=== PATIENT | female | born 1985 | race Two or more races ===

== ENCOUNTER 2017-01-27 19:12 | Emergency (ER) | payer MEDICAID, OTHER ==
[~2017-01-27] VITALS: Ht 154.9 cm; Wt 84.0 kg
[~2017-01-27 19:12] MED LIST: IOHEXOL-300 100 ML BOTTLE ONE; SODIUM CHLORIDE 0.9% 10ML VIAL ONE
[2017-01-27] MEDS ORDERED: IBUPROFEN 600MG TABLET PO STA (20:04)
[2017-01-27] MEDS ORDERED: SODIUM CHLORIDE 0.9% 1,000 ML IV ONE (20:04)
[2017-01-27] MEDS ORDERED: ALBUTEROL (0.083%) 2.5MG/3ML NEB HHN STA (20:07)
[2017-01-27] MEDS ORDERED: IPRATROPIUM BROMIDE (0.02%) 0.5MG/2.5ML NEB HHN STA (20:07)
[2017-01-27 20:26] LABS: HEMATOCRIT. 36.1 % (36.0-48.0); HEMOGLOBIN. 12.5 g/dL (12.0-16.0); MEAN CORPUSCULAR HEMOGLOBIN 30.2 pg (28.0-32.0); MEAN CORPUSCULAR HGB CONC 34.6 g/dL (31.0-37.0); MEAN CORPUSCULAR VOLUME 87.3 fL (81.0-99.0); MEAN PLATELET VOLUME 8.9 fl (7.4-10.4); PLATELET 172 x1000/uL (130-400); RED BLOOD CELL COUNT 4.14 mill/uL (4.2-5.4); RED CELL DISTRIBUTION WIDTH 12.8 % (11.6-14.6); WHITE BLOOD COUNT 3.6 x1000/uL (4.5-11.0)
[2017-01-27 20:29] LABS: DIFFERENTIAL COMMENT 1
[2017-01-27 20:30] LABS: PROTHROMBIN TIME 10.2 sec
[2017-01-27 20:36] LABS: ALBUMIN 3.6 g/dL (3.4-5.0); ANION GAP 12; CALCIUM 8.9 mg/dL (8.5-10.1); CARBON DIOXIDE 26 mEq/L (21-32); CHLORIDE 104 mEq/L (98-107); INDEX HEMOLYSI 1 (1-3); INDEX ICTERIC 1 (1-4); INDEX LIPEMIC 1 (1-3); UREA NITROGEN BLOOD 10 mg/dL (7-21)
[2017-01-27 20:41] LABS: ALANINE AMINOTRANSFERASE 29 IU/L (13-61); eGFR > 60 mL/min (>60)
[2017-01-27 20:42] LABS: HCG SCREEN NEGATIVE; TROPONIN I < 0.02 ng/mL (0.00-0.04)
[2017-01-27 21:05] LABS: ATYPICAL LYMPHOCYTES 1; PLATELET ESTIMATE NORMAL
[2017-01-27 21:12] LABS: CLARITY URINE CLEAR (CLEAR); COLOR URINE YELLOW (YELLOW); GLUCOSE URINE NEGATIVE (NEGATIVE); KETONES URINE NEGATIVE (NEGATIVE); LEUKOCYTE ESTERASE URINE NEGATIVE (NEGATIVE); NITRITE URINE NEGATIVE (NEGATIVE); OCCULT BLOOD URINE 1+ (NEGATIVE); PH URINE 6.5 (4.5-8.0); PROTEIN URINE NEGATIVE (NEGATIVE); SPECIFIC GRAVITY URINE 1.029 (1.005-1.030)
[2017-01-27 21:50] LABS: BACTERIA URINE TRACE; SQUAMOUS EPITHELIAL CELL URINE RARE /lpf (RARE/1+); WBC URINE NONE SEEN /hpf (0-2)
[2017-01-28] VITALS: BP 95/49
== END 2017-01-28 00:17 | disposition home or self-care (01) ==
LOC: ER 23:42
DX: N39.0 Urinary tract infection, site not specified (principal); R07.81 Pleurodynia; R05 Cough; Z98.51 Tubal ligation status
CPT/HCPCS: 36415; 71010; 74177; 80053; 81001; 83605; 84484; 84703; 85025; 85610; 87040; 87086; 93005; 94640; 96360; 99285; A4216; J7030; J7611; Q9967

== ENCOUNTER 2018-12-07 11:20 | Emergency (ER) | payer MEDICAID ==
[~2018-12-07] VITALS: Ht 154.9 cm; Wt 87.0 kg
[2018-12-07 11:51] VITALS: BP 118/53
== END 2018-12-07 16:20 | disposition left against medical advice (07) ==
LOC: ER 12:30
DX: Z53.21 Procedure and treatment not carried out due to patient leaving prior to being seen by health care provider (principal)
CPT/HCPCS: 93005

== ENCOUNTER 2019-05-15 00:22 | Emergency (ER) | payer MEDICAID ==
[~2019-05-15] VITALS: Ht 154.9 cm; Wt 89.0 kg
[2019-05-15] MEDS ORDERED: MORPHINE SULFATE 4 MG/ML CPJ (NOT FOR IM USE) IV ONE (03:30)
[2019-05-15 04:20] LABS: BASOPHILS % 0.7 % (0.0-2.0); EOSINOPHILS % 3.6 % (0.0-5.0); HEMATOCRIT. 37.2 % (36.0-48.0); HEMOGLOBIN. 12.9 g/dL (12.0-16.0); LYMPHOCYTES % 39.7 % (20.0-50.0); MEAN CORPUSCULAR HEMOGLOBIN 31.1 pg (28.0-32.0); MEAN CORPUSCULAR VOLUME 89.5 fL (81.0-99.0); MEAN PLATELET VOLUME 8.8 fl (7.4-10.4); MONOCYTES % 10.3 % (2.0-8.0); NEUTROPHILS % 45.7 % (40.0-76.0); PLATELET 241 x1000/uL (130-400); RED BLOOD CELL COUNT 4.15 mill/uL (4.2-5.4); RED CELL DISTRIBUTION WIDTH 12.6 % (11.6-14.6)
[2019-05-15 04:22] LABS: CLARITY URINE CLEAR (CLEAR); COLOR URINE YELLOW (YELLOW); KETONES URINE NEGATIVE (NEGATIVE); LEUKOCYTE ESTERASE URINE NEGATIVE (NEGATIVE); NITRITE URINE NEGATIVE (NEGATIVE); OCCULT BLOOD URINE NEGATIVE (NEGATIVE); PROTEIN URINE NEGATIVE (NEGATIVE); SPECIFIC GRAVITY URINE 1.028 (1.005-1.030); UROBILINOGEN URINE 0.2 E.U./dL (0.2-1.0)
[2019-05-15 04:25] LABS: CHLORIDE 107 mEq/L (98-107)
[2019-05-15] MEDS ORDERED: KETOROLAC 30MG/ML VIAL IM ONE (07:15)
[2019-05-15 08:19] VITALS: BP 110/60
== END 2019-05-15 08:26 | disposition home or self-care (01) ==
LOC: ER 00:22
DX: R10.9 Unspecified abdominal pain (principal); E78.00 Pure hypercholesterolemia, unspecified; Z98.51 Tubal ligation status
CPT/HCPCS: 36415; 74176; 76830; 76856; 80053; 81003; 81025; 83690; 85025; 85610; 96372; 96374; 99284; J1885; J2270

== ENCOUNTER 2019-10-01 22:53 | Emergency (ER) | payer MEDICAID, OTHER ==
[~2019-10-01] VITALS: Ht 157.5 cm; Wt 82.0 kg
[2019-10-01 23:22] VITALS: BP 138/87
== END 2019-10-02 03:36 | disposition left against medical advice (07) ==
LOC: ER 22:53
DX: Z53.21 Procedure and treatment not carried out due to patient leaving prior to being seen by health care provider (principal); F17.200 Nicotine dependence, unspecified, uncomplicated

== ENCOUNTER 2025-02-20 04:33 | Emergency (ER) | payer OTHER ==
[~2025-02-20] VITALS: Ht 154.9 cm; Wt 99.1 kg
[2025-02-20 05:04] VITALS: O2SAT 99
[2025-02-20 06:19] LABS: CLARITY URINE CLOUDY (CLEAR); COLOR URINE YELLOW (YELLOW); GLUCOSE URINE NEGATIVE (NEGATIVE); KETONES URINE 1+ (NEGATIVE); LEUKOCYTE ESTERASE URINE NEGATIVE (NEGATIVE); NITRITE URINE NEGATIVE (NEGATIVE); OCCULT BLOOD URINE 1+ (NEGATIVE); PROTEIN URINE NEGATIVE (NEGATIVE); SPECIFIC GRAVITY URINE 1.032 (1.005-1.030)
[2025-02-20 06:21] LABS: BASOPHILS % 0.7 % (0.0-2.0); EOSINOPHILS % 0.3 % (0.0-5.0); HEMATOCRIT. 38.9 % (36.0-48.0); HEMOGLOBIN. 13.3 g/dL (12.0-16.0); LYMPHOCYTES % 9.1 % (20.0-50.0); MEAN CORPUSCULAR HEMOGLOBIN 30.6 pg (28.0-32.0); MEAN CORPUSCULAR HGB CONC 34.3 g/dL (31.0-37.0); MEAN CORPUSCULAR VOLUME 89.2 fL (81.0-99.0); MEAN PLATELET VOLUME 8.5 fl (7.4-10.4); NEUTROPHILS % 82.9 % (40.0-76.0); PLATELET 299 x1000/uL (130-400); RED BLOOD CELL COUNT 4.37 mill/uL (4.2-5.4); RED CELL DISTRIBUTION WIDTH 13.2 % (11.6-14.6); WHITE BLOOD COUNT 10.7 x1000/uL (4.5-11.0)
[2025-02-20 06:29] LABS: CHLORIDE 102 mEq/L (98-107); POTASSIUM 4.5 mEq/L (3.5-5.1); SODIUM 137 mEq/L (136-145)
[2025-02-20 06:30] LABS: CALCIUM 9.8 mg/dL (8.7-10.4); CARBON DIOXIDE 25 mEq/L (21-32)
[2025-02-20 06:35] LABS: CREATININE 0.6 mg/dL (0.6-1.0); GLUCOSE 128 mg/dL (70-105); UREA NITROGEN BLOOD 11 mg/dL (9-23)
[2025-02-20] MEDS: ONDANSETRON 4MG ODT PO ONE (06:41)
[2025-02-20 06:43] LABS: HCG SCREEN NEGATIVE
[2025-02-20 06:56] LABS: SQUAMOUS EPITHELIAL CELL URINE 1+ /lpf (RARE/1+); WBC URINE 0-2 /hpf (0-2)
[2025-02-20 06:58] LABS: BACTERIA URINE NONE SEEN
[2025-02-20] MEDS: KETOROLAC 15MG/ML VIAL IM ONE (07:09)
[2025-02-20 07:11] LABS: ALANINE AMINOTRANSFERASE 38 IU/L (10-49); ALBUMIN 4.7 g/dL (3.2-4.8); ASPARTATE AMINOTRANSFERASE 21 IU/L (<34); BILIRUBIN DIRECT < 0.1 mg/dL (<=3.0); BILIRUBIN TOTAL 0.4 mg/dL (0.1-1.0)
[2025-02-20 09:01] VITALS: BP 126/84; PULSE 95; RESP 18; TEMP 36.7; O2SAT 96
== END 2025-02-20 09:36 | disposition home or self-care (01) ==
LOC: ER 04:33
DX: R11.0 Nausea (principal); K80.70 Calculus of gallbladder and bile duct without cholecystitis without obstruction; E78.00 Pure hypercholesterolemia, unspecified; F10.90 Alcohol use, unspecified, uncomplicated; F12.90 Cannabis use, unspecified, uncomplicated; Y90.9 Presence of alcohol in blood, level not specified
CPT/HCPCS: 99285; 76705; 80076; 80048; 81003; 81025; 84703; 83690; 85025; 36415; 96372; J1885; Q0162